=== PATIENT | born 1960 | race Caucasian/White ===

== ENCOUNTER → 2023-09-05 11:35 | Outpatient (BNVA) | payer OTHER, SELFPAY | PROVIDERS: PCP Internal Medicine; Referring Provider Internal Medicine; Visit Provider Internal Medicine | DX: E03.9 Hypothyroidism, unspecified (principal); I48.91 Unspecified atrial fibrillation; M81.0 Age-related osteoporosis without current pathological fracture | CPT/HCPCS: 36415; 83516; 84439; 84443; 86376; 86800 ==

== ENCOUNTER → 2024-05-25 10:14 | Outpatient (BNVA) | payer OTHER, SELFPAY | PROVIDERS: PCP Internal Medicine; Visit Provider Internal Medicine | DX: E03.9 Hypothyroidism, unspecified (principal); I48.91 Unspecified atrial fibrillation | CPT/HCPCS: 36415; 84439; 84443 ==

== ENCOUNTER 2024-11-23 09:26 | Outpatient (CLI) | payer OTHER, SELFPAY ==
[2024-11-23 11:00] LABS: Free T4 Free Thyroxine 1.57 ng/dL (0.82-1.77); Thyroid Stimulating Hormone 1.86 uIU/mL (0.27-4.20)
== END 2024-11-23 09:27 | disposition home or self-care (01) ==
PROVIDERS: PCP Internal Medicine; Visit Provider Internal Medicine
DX: E03.9 Hypothyroidism, unspecified (principal)
CPT/HCPCS: 36415; 84439; 84443